=== PATIENT | female | born 1960 | race Caucasian/White ===

== ENCOUNTER 2021-02-16 21:59 | Emergency (ER) | payer MEDICAID, SELFPAY ==
[2021-02-16 22:00] VITALS: BP 144/81; PULSE 74; RESP 16; TEMP 36.7; O2SAT 97; BMI 40.6
--- NOTE | 2021-02-16 22:30 | XR_ITS ---
PROCEDURE INFORMATION: Exam: XR Left Femur Exam date and time: 02/16/2021 10:30 PM Age: 60 years old Clinical indication: Pain; Thigh; Left; Additional info: Injury twisted knee 02/14/2021 now pain left upper leg, knee and lower leg TECHNIQUE: Imaging protocol: XR Left femur. Views: 2 views. COMPARISON: No relevant prior studies available. FINDINGS: Bones/joints: No acute fracture. No dislocation. Soft tissues: Unremarkable. IMPRESSION: No fracture.
--- NOTE | 2021-02-16 22:30 | XR_ITS ---
PROCEDURE INFORMATION: Exam: XR Left Knee Exam date and time: 02/16/2021 10:30 PM Age: 60 years old Clinical indication: Pain; Knee; Left; Additional info: Injury twisted knee 02/14/2021 TECHNIQUE: Imaging protocol: XR Left knee. Views: 3 views. COMPARISON: No relevant prior studies available. FINDINGS: Limitations: Suboptimal positioning. Bones/joints: No acute fracture. Mild to moderate osteoarthrosis of medial compartment. No dislocation. No definite joint effusion. Soft tissues: Unremarkable. IMPRESSION: No fracture. If pain persists, suggest MRI to evaluate for occult fracture/internal arrangement.
--- NOTE | 2021-02-16 22:30 | XR_ITS ---
PROCEDURE INFORMATION: Exam: XR Left Tibia and Fibula Exam date and time: 02/16/2021 10:30 PM Age: 60 years old Clinical indication: Pain; Lower leg; Left; Additional info: Injury twisted knee 02/14/2021 pain TECHNIQUE: Imaging protocol: XR Left tibia and fibula. Views: 2 views. COMPARISON: CR XR KNEE LT 3V 02/16/2021 10:37 PM FINDINGS: Bones/joints: No acute fracture. No dislocation. Plantar calcaneal enthesophyte. Soft tissues: Soft tissue swelling. IMPRESSION: No fracture.
--- NOTE | 2021-02-16 22:30 | XR_ITS ---
PROCEDURE INFORMATION: Exam: XR Left Hip Exam date and time: 02/16/2021 10:30 PM Age: 60 years old Clinical indication: Hip pain; Left hip; Additional info: Injury twisted left knee 02/14/2021 now pain left hip, upper leg, knee and lower leg TECHNIQUE: Imaging protocol: XR Left hip. Views: 2 or 3 views hip with pelvis when performed. COMPARISON: No relevant prior studies available. FINDINGS: Bones/joints: No acute fracture. No dislocation. Soft tissues: Unremarkable. IMPRESSION: No fracture. If hip pain persists, consider MRI to exclude occult fracture/internal derangement.
--- NOTE | 2021-02-16 23:15 | HMH.EDGENADL ---
ED Disposition Clinical Impression: Lumbar radiculopathy, acute Disposition: Home, Self-Care Condition on Discharge: Good Instructions: DI for Lumbar Radiculopathy Additional Instructions: see pcp and use meds Prescriptions: predniSONE [Prednisone 20mg Tab] 20 mg PO BID #10 tab Transmission Status: Pending to [facility] #[id number] Referrals: Provider,Referral, [Primary Care Provider] - - Critical Care Critical Care Time: No Attestation: On 02/16/21, the high probability of a clinically significant, sudden or life threatening deterioration of the following system(s) required my full and direct attention, intervention and personal management. The time I documented below is in addition to time spent performing reported procedures but includes the following listed in this critical care notation. Medical Decision Making - Medical Records Medical records reviewed: Yes: I reviewed the patient's medical records. - Jimmie Inquiry Pt receiving controlled substance: No Vital Signs: 02/16/21 22:00 Temperature 98.0 F Temperature Source Oral Pulse Rate [Right] 74 Respiratory Rate 16 Blood Pressure [Right Arm] 144/81 H Blood Pressure Mean [Right Arm] 102 02 Sat by Pulse Oximetry 97 Oxygen Delivery Method Room Air - Lab Data Lab results reviewed: Yes: I reviewed the patient's lab results. Orders (Tests/Meds): ED MEDICATIONS Discontinued Medications Generic Name Dose Route Start Last Admin Trade Name Luz PRN Reason Stop Dose Admin Hydrocodone Bitart/Acetaminophen 1 tab 02/16/21 23:48 02/16/21 23:51 Hydrocodone/Apap 5/325 Mg Tablet PO 02/16/21 23:49 1 tab ONCE ONE Administration ORDERS Category Date Time Status XR femur LT 2V Stat Exams 02/16/21 22:30 Taken XR hip LT 2-3V w/pelvis Stat Exams 02/16/21 22:30 Taken XR knee LT 3V Stat Exams 02/16/21 22:30 Taken XR tibia fibula LT 2V Stat Exams 02/16/21 22:30 Taken - Radiology Data #1 Image(s): Hip, Femur, Knee, Tib/Fib Image Reviewed: Yes I reviewed the patient's radiology image Preliminary Findings: No Fracture Seen Medical Decision Narrative: has reffered pain with prob lumbar radicular pain - will ask pt to see pcp for follow up General Adult HPI - General Chief complaint: PAIN Stated complaint: L leg pain twisted knee 02/14 Time Seen by Provider: 02/16/21 22:20 Mode of Arrival: Ambulatory Source of Information: Patient, Medical Record Limitations: No Limitations Description of Symptoms (Recalled from ER Triage Doc. by RN): c\o left leg pain from hip to ankle since this am. twisted the knee on wednesday night - History of Present Illness HPI narrative: atraumatic pain lt lower leg over the last 2 days w/o fever/rash or trauma Onset (ago): day(s) Location: back, lower extremity Radiation: extremity Severity: moderate Associated symptoms: denies other symptoms Treatments prior to arrival: none - Related Data Previous Rx's Medication Instructions Recorded predniSONE [Prednisone 20mg 20 mg PO BID #10 tab 02/17/21 Tab] Allergies Allergy/AdvReac Type Severity Reaction Status Date / Time ketorolac [From Toradol] Allergy Mild Verified 02/16/21 22:19 metoclopramide [From Reglan] Allergy Verified 02/16/21 22:19 Penicillins Allergy Verified 02/16/21 22:19 prochlorperazine Allergy Verified 02/16/21 22:19 [From Compazine] [facility] History - Hepatitis A Screen Drug use history?: No High risk sexual behaviors?: No History of sexually transmitted infection?: No Currently employed?: No Childcare worker?: No Do you have indoor plumbing?: Yes Do you have electricity?: Yes Attestation statement:: This patient has been screened for Hepatitis A risk factors. I have reviewed the patient's past medical history: Yes ROS Obtained: Yes All systems reviewed & no additional complaints - Constitutional Constitutional: Denies fever(s) - Eyes Eyes: Denies change in vi
[2021-02-17 00:31] VITALS: BP 168/89; PULSE 85; RESP 16; TEMP 36.9; O2SAT 97
== END 2021-02-17 00:47 | disposition home or self-care (01) ==
PROVIDERS: Emergency Provider Emergency Medicine
DX: M54.16 Radiculopathy, lumbar region (principal); M79.605 Pain in left leg
CPT/HCPCS: 73502; 73552; 73562; 73590; 99282

== ENCOUNTER 2021-07-04 21:28 | Emergency (ER) | payer MEDICAID, SELFPAY ==
[2021-07-04 21:30] VITALS: BP 169/97; PULSE 116; RESP 18; TEMP 36.7; O2SAT 97; BMI 41.5
[2021-07-04 22:00] VITALS: BP 159/99; PULSE 89; O2SAT 97
--- NOTE | 2021-07-04 22:02 | CT_ITS ---
PROCEDURE INFORMATION: Exam: CTA Chest With Contrast Exam date and time: 07/04/2021 10:02 PM Age: 61 years old Clinical indication: Other: Weakness covid chest pain; Additional info: Covid + pe rule out TECHNIQUE: Imaging protocol: Computed tomographic angiography of the chest with contrast. 3D rendering (Not supervised by radiologist): MIP and/or 3D reconstructed images were created by the technologist. Radiation optimization: All CT scans at this facility use at least one of these dose optimization techniques: automated exposure control; mA and/or kV adjustment per patient size (includes targeted exams where dose is matched to clinical indication); or iterative reconstruction. Contrast material: ISOVUE 370; Contrast volume: 70 ml; Contrast route: INTRAVENOUS (IV); COMPARISON: CR XR CHEST 2V 07/04/2021 10:29 PM FINDINGS: Pulmonary arteries: No pulmonary emboli. Aorta: Mild atherosclerotic changes of the aorta. Lungs: Widespread ground-glass airspace disease. Pleural spaces: Unremarkable. No pneumothorax. No pleural effusion. Heart: Unremarkable. No cardiomegaly. No pericardial effusion. Lymph nodes: Unremarkable. No enlarged lymph nodes. Diaphragm: Small hiatal hernia. Liver: Hepatic steatosis. Gallbladder and bile ducts: Gallbladder is absent. Kidneys and ureters: Low attenuation renal lesions measuring up to 1.6 cm in diameter are incompletely characterized, but are likely cysts. No followup imaging is warranted. Bones/joints: Unremarkable. No acute fracture. Soft tissues: Unremarkable. Other findings: Stigmata of old granulomatous disease. IMPRESSION: 1. No pulmonary emboli. 2. Widespread ground-glass airspace disease. This most likely represents atypical pneumonia. This is a common appearance for COVID-19. 3. Hepatic steatosis. COMMENTS: Consistent with the [employer]'s Incidental Findings Committee white paper (J Am Rj Radiol 2018): Any incidental renal lesion less than 1 cm or classified as too small to characterize, or any incidental cystic renal lesion characterized as simple-appearing, is likely benign. No follow-up imaging is recommended for these lesions per consensus recommendations based on imaging criteria.
--- NOTE | 2021-07-04 22:02 | XR_ITS ---
PROCEDURE INFORMATION: Exam: XR Chest Exam date and time: 07/04/2021 10:02 PM Age: 61 years old Clinical indication: Other: Covid weakness chest pain; Additional info: Weakness covid+ TECHNIQUE: Imaging protocol: XR of the chest. Views: 2 views. COMPARISON: No relevant prior studies available. FINDINGS: Lungs: Mild patchy ground-glass opacities in the lungs. Pleural spaces: Unremarkable. No pleural effusion. No pneumothorax. Heart/Mediastinum: Unremarkable. No cardiomegaly. Bones/joints: Unremarkable. IMPRESSION: Mild patchy ground-glass opacities in the lungs. This could correlate with atypical pneumonia, such as COVID-19, in the appropriate clinical setting.
--- NOTE | 2021-07-04 22:11 | ECG_ITS ---
APPROVED REPORT Exam: Resting ECG HR:97 bpm ECG Measurements Heart Rate 97 AXES DE 155 P 62 QRSd 79 QRS 42 QT 362 T 75 QTc 416 Conclusion SINUS RHYTHM NORMAL ECG UNCONFIRMED REPORT Electronically signed by : Michel Colón MD 07/05/2021 07:35:31
[2021-07-04 22:22] LABS: Basophils # 0.4 K/mm3 (0-0.2); Basophils % 4.9 % (0.1-2.0); Eosinophils # 0.2 K/mm3 (0.0-0.4); Eosinophils % 2.3 % (0.1-12.0); Hematocrit 46.7 % (37.0-47.0); Hemoglobin 15.4 g/dL (12.2-16.2); Lymphocytes # 2.4 K/mm3 (0.7-4.5); Lymphocytes % 29.8 % (10-50); Mean Corpuscular Volume 103.1 fl (81-99); Mean Platelet Volume 9.3 fl (7.4-10.4); Monocytes # 0.6 K/mm3 (0.1-1.0); Monocytes % 6.9 % (1.7-9.3); Neutrophils # 4.9 K/mm3 (1.8-7.8); Platelet Count 363 K/mm3 (142-424); Red Blood Count 4.53 M/mm3 (4.20-5.40); Red Cell Distribution Width 15.3 % (11.5-17.5); White Blood Count 8.1 K/mm3 (4.8-10.8)
[2021-07-04 22:24] LABS: Alanine Aminotransferase 41 U/L (12-78); Albumin Level 4.1 g/dl (3.5-5.0); Alkaline Phosphatase 100 U/L (38-126); Anion Gap 8.2 mEq/L (5-15); Aspartate Amino Transferase 60 U/L (14-36); Bilirubin,Direct 0.2 mg/dl (0.0-0.4); Bilirubin,Indirect 0.5 mg/dL (0.0-0.9); Bilirubin,Total 0.7 mg/dl (0.2-1.3); Bilirubin,Unconjugated 0.5 mg/dL (0.0-1.1); Blood Urea Nitrogen 17 mg/dl (7-17); Calcium 9.4 mg/dl (8.4-10.2); Carbon Dioxide 30 mmol/L (22.0-30.0); Chloride 104 mmol/L (98-107); Creatinine Clearance Estimated 41 mL/min (50-200); Estimated Glomerular Filt Rate 50 ml/min (>60); GFR (African American) 61 ML/MIN (>60); Glucose 118 mg/dl (74-100); Potassium 3.2 mmoL/L (3.5-5.1); Sodium 139 mmol/L (136-145); Total Protein,Serum 7.5 g/dl (6.3-8.2)
[2021-07-04 22:28] LABS: Magnesium 1.6 mg/dl (1.6-2.3)
[2021-07-04 22:29] LABS: C-Reactive Protein 6.1 mg/L (0-4)
--- NOTE | 2021-07-04 22:37 | PC.NURSE ---
patient assisted to bathroom, patient to radiology
[2021-07-04 22:40] LABS: Troponin I < 0.01 ng/ml (0.00-0.034)
--- NOTE | 2021-07-04 22:41 | HMH.EDWEAK ---
ED Disposition Clinical Impression: Lumbar back pain, COVID-19 virus infection UTI (urinary tract infection) Qualifiers: Urinary tract infection type: site unspecified Hematuria presence: without hematuria Qualified Code(s): N39.0 - Urinary tract infection, site not specified Disposition: Home, Self-Care Condition on Discharge: Good Instructions: DI for COVID-19 (Suspected or Confirmed ) Additional Instructions: fluids and see pcp for follow up Prescriptions: levoFLOXacin [Levaquin 500mg tab] 500 mg PO DAILY #7 tab [facility]: [facility] predniSONE [Prednisone 20mg Tab] 20 mg PO BID #10 tab [facility] Status[facility] Referrals: Provider,Referral, MD [Primary Care Provider] - - Critical Care Critical Care Time: No Attestation: On 07/04/21, the high probability of a clinically significant, sudden or life threatening deterioration of the following system(s) required my full and direct attention, intervention and personal management. The time I documented below is in addition to time spent performing reported procedures but includes the following listed in this critical care notation. Medical Decision Making - Medical Records Medical records reviewed: Yes: I reviewed the patient's medical records. - Jimmie Inquiry Pt receiving controlled substance: No Vital Signs: 07/04/21 21:30 Temperature 98.0 F Temperature Source Oral Pulse Rate [Right Radial] 116 H Respiratory Rate 18 Blood Pressure [Right Arm] 169/97 H Blood Pressure Mean [Right Arm] 121 Blood Pressure Source [Right Arm] Automatic Cuff Blood Pressure Position [Right Arm] Sitting 02 Sat by Pulse Oximetry 97 Oxygen Delivery Method Room Air - Lab Data Lab results reviewed: Yes: I reviewed the patient's lab results. Lab Results 07/04/21 22:06: WBC 8.1, RBC 4.53, Hgb 15.4, Hct 46.7, MCV 103.1 H, MCH 34.0 H, MCHC 33.0, RDW 15.3, Plt Count 363, MPV 9.3, Neut % (Auto) 61.0, Lymph % (Auto) 29.8, [place] % (Auto) 6.9, Eos % (Auto) 2.3, Baso % (Auto) 4.9 H, Neut # (Auto) 4.9, Lymph # (Auto) 2.4, [place] # (Auto) 0.6, Eos # (Auto) 0.2, Baso # (Auto) 0.4 H 07/04/21 22:06: Sodium 139, Potassium 3.2 L, Chloride 104, Carbon Dioxide 30, Anion Gap 8.2, BUN 17, Creatinine 1.10 H, Estimated Creat Clear 41, Estimated GFR 50 L, Est GFR ( Amer) 61, Glucose 118 H, Calcium 9.4, Total Bilirubin 0.7, Direct Bilirubin 0.2, Conjugated Bilirubin 0.0, Indirect Bilirubin 0.5, Unconjugated Bilirubin 0.5, AST 60 H, ALT 41, Alkaline Phosphatase 100, Troponin I < 0.01, C-Reactive Protein 6.1 H, Total Protein 7.5, Albumin 4.1 07/04/21 22:06: ESR 46 H 07/04/21 22:06: Procalcitonin 0.060 07/04/21 22:06: Magnesium 1.6 07/04/21 22:30: Urine Color Dk yellow, Urine Appearance Sl cloudy, Urine pH 6.0, Ur Specific [place] >= 1.030, Urine Protein Trace, Urine Glucose (UA) Negative, Urine Ketones Trace, Urine Blood 1+, Urine Nitrate Negative, Urine Bilirubin Negative, Urine Urobilinogen 0.2, Ur Leukocyte Esterase Trace, Urine RBC 10-20, Urine WBC 10-20, Ur Squamous Epith Cells 5-10, Urine Mucus 4+ Result diagrams: 07/04/21 22:06 07/04/21 22:06 Orders (Tests/Meds): ED MEDICATIONS Generic Name Dose Route Start Last Admin Trade Name Freq PRN Reason Stop Dose Admin Lactated Ringer's 1,000 mls @ 999 mls/hr 07/04/21 22:45 Lactated Ringer's 1000 Ml Bag IV 07/04/21 23:45 .Q1H1M SARAH Ceftriaxone Sodium 1 gm/ 50 mls @ 100 mls/hr 07/04/21 23:30 Sodium Chloride IV 07/18/21 23:29 Q24H SARAH Discontinued Medications Generic Name Dose Route Start Last Admin Trade Name Freq PRN Reason Stop Dose Admin Acetaminophen 1,000 mg 07/04/21 22:34 07/04/21 22:36 Acetaminophen 500mg Tab PO 07/04/21 22:35 1,000 mg ONCE ONE Administration Iopamidol 70 ml 07/04/21 22:52 07/04/21 22:53 Iopamidol-370 (76%);100ml Bottle IV 07/04/21 22:53 70 ml ONCE ONE Administration Methylprednisolone Sodium Succi
[2021-07-04 22:47] LABS: Erythrocyte Sedimentation Rate 46 mm/hr (0-30)
[2021-07-04 23:04] LABS: Microscopic, Urine URINE MICROSCOPIC (MICROSCOPIC)
[2021-07-04 23:06] LABS: Appearance,Urine SL CLOUDY (Clear); Blood, Urine 1+ (Negative); Color,Urine DK YELLOW (Yellow); Glucose,Urine (UA) Negative (Negative); Ketones,Urine TRACE (Negative); Leukocyte Esterase,Urine TRACE (Negative); Nitrate,Urine Negative (Negative); Protein,Urine TRACE (Negative); Specific Gravity, Urine >= 1.030 (1.005-1.030); Urobilinogen,Urine 0.2 EU/dl (0.2)
--- NOTE | 2021-07-04 23:11 | PC.NURSE ---
PT ASSISTED WITH REPOSITIONING FOR COMFORT. HEAD OF BED ADJUSTED AND AND PILLOWS PLACED BELOW KNEES AND LIGHTS DIMMED. PT AWARE OF NO NARCOTICS UNTIL THE SOURCE OF HER WEAKNESS IS IDENTIFIED FOR SAFETY AND PT AWARE OF NPO UNTIL CLEARED BY MD. WILL CONTINUE TO MONITOR.
[2021-07-04 23:12] LABS: Bilirubin,Urine Negative (Negative); Mucus,Urine 4+ /lpf
[2021-07-04 23:30] VITALS: BP 161/95; PULSE 86; O2SAT 96
[2021-07-05 01:17] VITALS: BP 160/90; PULSE 85; RESP 16; TEMP 36.7; O2SAT 97
== END 2021-07-05 01:17 | disposition home or self-care (01) ==
PROVIDERS: Emergency Provider Emergency Medicine
DX: M54.50 Low back pain, unspecified (principal); U07.1 COVID-19
CPT/HCPCS: 71046; 71275; 80048; 80076; 81001; 83735; 84145; 84484; 85025; 85651; 86140; 87086; 93005; 96365; 96375; 99283; J0696; Q9967

== ENCOUNTER 2021-10-08 01:34 | Emergency (ER) | payer MEDICAID, SELFPAY ==
[2021-10-08 01:46] VITALS: BP 180/120; PULSE 109; RESP 18; TEMP 36.7; O2SAT 97; BMI 39.6
--- NOTE | 2021-10-08 01:51 | CT_ITS ---
PROCEDURE INFORMATION: Exam: CT Abdomen And Pelvis With Contrast Exam date and time: 10/08/2021 2:39 AM Age: 61 years old Clinical indication: Abdominal pain; Localized; Patient HX: Pain left flank to lower abdomen TECHNIQUE: Imaging protocol: Computed tomography of the abdomen and pelvis with contrast. Radiation optimization: All CT scans at this facility use at least one of these dose optimization techniques: automated exposure control; mA and/or kV adjustment per patient size (includes targeted exams where dose is matched to clinical indication); or iterative reconstruction. Contrast material: ISOVUE; Contrast volume: 75 ml; Contrast route: IV; COMPARISON: CR XR HIP LT 2-3V W/PELVIS 02/16/2021 10:34 PM FINDINGS: Lungs: Clear basilar lung parenchyma. Pleural spaces: No pleural fluid. Heart: Normal heart size. Diaphragm: Moderate hiatal hernia noted. Liver: Homogeneous low attenuation throughout the liver is compatible with fatty infiltration. Gallbladder and bile ducts: Exam demonstrates features of prior cholecystectomy. No biliary tree dilation or high-density retained stones appreciated. Pancreas: There is diffuse fatty atrophy of the pancreas. No focal inflammation. Spleen: Normal. No splenomegaly. Adrenal glands: Normal. No mass. Kidneys and ureters: There is a slightly delayed left nephrogram. Left hydronephrosis and hydroureter are demonstrated. There is a 3 mm calculus in the intramural portion of the left ureterovesical junction. No residual intrarenal stones on the right. Single punctate intrarenal stone noted on the left. Stomach and bowel: Postprandial stomach. Normal caliber small bowel. Normal colon. Appendix: Normal appendix is confirmed. Intraperitoneal space: Unremarkable. No free air. No significant fluid collection. Vasculature: Unremarkable. No abdominal aortic aneurysm. Lymph nodes: Unremarkable. No enlarged lymph nodes. Urinary bladder: Mild thickening of the bladder wall at this site is noted. Reproductive: Unremarkable as visualized. Bones/joints: Unremarkable. No acute fracture. Soft tissues: Unremarkable. IMPRESSION: 1. Exam confirms left renal obstruction by a 3 mm calculus at the ureterovesical junction. 2. Moderate hiatal hernia. 3. Fatty liver.
[2021-10-08 02:03] LABS: Microscopic, Urine URINE MICROSCOPIC (MICROSCOPIC)
[2021-10-08 02:09] LABS: Basophils # 0.2 K/mm3 (0-0.2); Basophils % 2.7 % (0.1-2.0); Eosinophils # 0.2 K/mm3 (0.0-0.4); Eosinophils % 3.1 % (0.1-12.0); Hematocrit 46.1 % (37.0-47.0); Hemoglobin 15.4 g/dL (12.2-16.2); Lymphocytes # 2.2 K/mm3 (0.7-4.5); Lymphocytes % 32.5 % (10-50); Mean Corpuscular HGB Conc 33.3 g/dL (31.8-35.4); Mean Platelet Volume 8.9 fl (7.4-10.4); Monocytes # 0.5 K/mm3 (0.1-1.0); Monocytes % 7.2 % (1.7-9.3); Neutrophils # 3.7 K/mm3 (1.8-7.8); Neutrophils % 54.5 % (37.0-80.0); Platelet Count 194 K/mm3 (142-424); Red Blood Count 4.39 M/mm3 (4.20-5.40); Red Cell Distribution Width 13.7 % (11.5-17.5); White Blood Count 6.9 K/mm3 (4.8-10.8)
[2021-10-08 02:11] LABS: Appearance,Urine CLEAR (Clear); Bilirubin,Urine Negative (Negative); Blood, Urine 3+ (Negative); Color,Urine YELLOW (Yellow); Glucose,Urine (UA) Negative (Negative); Ketones,Urine Negative (Negative); Leukocyte Esterase,Urine Negative (Negative); Nitrate,Urine Negative (Negative); PH,Urine 6.5 (5.0-8.5); Protein,Urine Negative (Negative); Urobilinogen,Urine 0.2 EU/dl (0.2)
[2021-10-08 02:17] LABS: Alanine Aminotransferase 28 U/L (12-78); Albumin Level 4.1 g/dl (3.5-5.0); Albumin/Globulin Ratio 1.3 (1.1-1.8); Alkaline Phosphatase 86 U/L (38-126); Amylase 46 U/L (30-110); Anion Gap 10.9 mEq/L (5-15); Aspartate Amino Transferase 44 U/L (14-36); Bilirubin,Total 0.3 mg/dl (0.2-1.3); Blood Urea Nitrogen 19 mg/dl (7-17); Calcium 10.6 mg/dl (8.4-10.2); Carbon Dioxide 29 mmol/L (22.0-30.0); Chloride 102 mmol/L (98-107); Creatinine Clearance Estimated 89 mL/min (50-200); Estimated Glomerular Filt Rate 64 ml/min (>60); GFR (African American) 77 ML/MIN (>60); Globulin 3.1 g/dL (1.3-3.2); Glucose 120 mg/dl (74-100); Sodium 139 mmol/L (136-145); Total Protein,Serum 7.2 g/dl (6.3-8.2)
[2021-10-08 02:26] LABS: C-Reactive Protein 9.8 mg/L (0-4); Potassium 2.9 mmoL/L (3.5-5.1); WBC,Urine Occasional #/hpf (0-3)
--- NOTE | 2021-10-08 02:26 | PC.NURSE ---
Critical potassium of 2.9 called from Megan in Lab. Notified.
[2021-10-08 02:27] LABS: Bacteria,Urine Trace /lpf
[2021-10-08 02:38] LABS: Procalcitonin 0.078 ng/mL (0.0-2.0)
[2021-10-08 02:47] LABS: Lipase 39 U/L (23-300)
--- NOTE | 2021-10-08 02:57 | HMH.EDNVD ---
ED Disposition Clinical Impression: Renal colic on left side Disposition: Home, Self-Care Condition on Discharge: Good Instructions: DI for Kidney Stones Additional Instructions: use meds and see pcp and urology for follow up Prescriptions: Tamsulosin HCl [Flomax 0.4mg capsule] 0.4 mg PO HS #10 cap Transmission Status: Pending to [facility] levoFLOXacin [Levaquin 500mg tab] 500 mg PO DAILY #7 tab Transmission Status: Pending to [facility] Referrals: Carlyn Ervin APRN [Primary Care Provider] - Keven Grimes MD [Staff Physician] - - Critical Care Critical Care Time: No Attestation: On 10/08/21, the high probability of a clinically significant, sudden or life threatening deterioration of the following system(s) required my full and direct attention, intervention and personal management. The time I documented below is in addition to time spent performing reported procedures but includes the following listed in this critical care notation. Medical Decision Making - Medical Records Medical records reviewed: Yes: I reviewed the patient's medical records. - Jimmie Inquiry Pt receiving controlled substance: No Vital Signs: 10/08/21 01:46 Temperature 98.0 F Temperature Source Oral Pulse Rate [Apical] 109 H Respiratory Rate 18 Blood Pressure [Right Arm] 180/120 H Blood Pressure Mean [Right Arm] 140 Blood Pressure Source [Right Arm] Manual Cuff/ Auscultation Blood Pressure Position [Right Arm] Sitting 02 Sat by Pulse Oximetry 97 Oxygen Delivery Method Room Air - Lab Data Lab results reviewed: Yes: I reviewed the patient's lab results. Lab Results 10/08/21 02:00: Urine Color Yellow, Urine Appearance Clear, Urine pH 6.5, Ur Specific [place] 1.020, Urine Protein Negative, Urine Glucose (UA) Negative, Urine Ketones Negative, Urine Blood 3+, Urine Nitrate Negative, Urine Bilirubin Negative, Urine Urobilinogen 0.2, Ur Leukocyte Esterase Negative, Urine RBC 5-10, Urine WBC Occasional, Urine Bacteria Trace 10/08/21 02:00: WBC 6.9, RBC 4.39, Hgb 15.4, Hct 46.1, MCV 105.0 H, MCH 35.0 H, MCHC 33.3, RDW 13.7, Plt Count 194, MPV 8.9, Neut % (Auto) 54.5, Lymph % (Auto) 32.5, [place] % (Auto) 7.2, Eos % (Auto) 3.1, Baso % (Auto) 2.7 H, Neut # (Auto) 3.7, Lymph # (Auto) 2.2, [place] # (Auto) 0.5, Eos # (Auto) 0.2, Baso # (Auto) 0.2, ESR 22 10/08/21 02:00: Sodium 139, Potassium 2.9 L*, Chloride 102, Carbon Dioxide 29, Anion Gap 10.9, BUN 19 H, Creatinine 0.90, Estimated Creat Clear 89, Estimated GFR 64, Est GFR ( Amer) 77, Glucose 120 H, Calcium 10.6 H, Total Bilirubin 0.3, AST 44 H, ALT 28, Alkaline Phosphatase 86, C-Reactive Protein 9.8 H, Total Protein 7.2, Albumin 4.1, Globulin 3.1, Albumin/Globulin Ratio 1.3, Amylase 46, Procalcitonin 0.078 10/08/21 02:00: Lipase 39 Result diagrams: 10/08/21 02:00 10/08/21 02:00 Orders (Tests/Meds): ED MEDICATIONS Generic Name Dose Route Start Last Admin Trade Name Freq PRN Reason Stop Dose Admin Acetaminophen/Codeine Phosphate packet 10/08/21 03:55 Acetaminophen 300mg W/Codeine 30mg Take Home Pack (6) PO 10/08/21 03:56 ONCE ONE Sodium Chloride 1,000 mls @ 999 mls/hr 10/08/21 02:00 10/08/21 02:00 Sod Chlor 0.9% 1000ml Bag IV 10/08/21 03:00 999 mls/hr .Q1H1M SARAH Administration Discontinued Medications Generic Name Dose Route Start Last Admin Trade Name Freq PRN Reason Stop Dose Admin Acetaminophen/Codeine Phosphate packet 10/08/21 03:40 Acetaminophen 300mg W/Codeine 30mg Take Home Pack (6) PO 10/08/21 03:41 ONCE ONE Acetaminophen/Codeine Phosphate packet 10/08/21 03:48 Acetaminophen 300mg W/Codeine 30mg Take Home Pack (6) PO 10/08/21 03:49 ONCE ONE Hydromorphone HCl 1 mg 10/08/21 03:41 10/08/21 03:54 Hydromorphone 2mg/Ml Syringe IV 10/08/21 03:42 1 mg ONCE ONE Administration Iopamidol 75 ml 10/08/21 02:48 10/08/21 02:49 Iopamidol-370 (76%);100ml Bottle IV
[2021-10-08 03:03] LABS: Erythrocyte Sedimentation Rate 22 mm/hr (0-30)
[2021-10-08 04:12] VITALS: BP 143/86; PULSE 75; RESP 17; TEMP 36.7; O2SAT 99
== END 2021-10-08 04:16 | disposition home or self-care (01) ==
PROVIDERS: Emergency Provider Emergency Medicine; PCP Nurse Practitioner Family
DX: N13.2 Hydronephrosis with renal and ureteral calculous obstruction (principal); N23 Unspecified renal colic; R10.32 Left lower quadrant pain; Z88.0 Allergy status to penicillin
CPT/HCPCS: 74177; 80053; 81001; 82150; 83690; 84145; 85025; 85651; 86140; 96365; 96375; 99284; J2405; Q9967

== ENCOUNTER → 2022-05-29 14:45 | Outpatient (CLI) | payer MEDICAID, SELFPAY ==
[2022-05-29 19:35] LABS: Amphetamine/Metha Screen,Urine Negative ng/ml (<1000); Barbiturates Screen,Urine Negative ng/ml (<200)
[2022-05-29 19:36] LABS: Benzodiazepines Screen,Urine Negative ng/ml (<200)
[2022-05-29 19:37] LABS: Cannabinoid Screen,Urine Negative ng/ml (<50); Cocaine Screen,Urine Negative ng/ml (<300)
[2022-05-29 19:38] LABS: Methadone Screen,Urine Negative ng/ml (<300); Opiate Screen,Urine Negative ng/ml (<300)
[2022-05-29 19:39] LABS: Phencyclidine Screen,Urine Negative ng/ml (<25)
== END ==
PROVIDERS: PCP Emergency Medicine; Visit Provider Emergency Medicine
DX: Z79.899 Other long term (current) drug therapy (principal)
CPT/HCPCS: 80305

== ENCOUNTER → 2022-10-09 16:09 | Outpatient (CLI) | payer OTHER, MEDICAID, SELFPAY ==
[2022-10-09 18:09] LABS: Basophils # 0.1 K/mm3 (0-0.2); Basophils % 0.6 % (0.1-2.0); Eosinophils # 0.3 K/mm3 (0.0-0.4); Hematocrit 44.5 % (37.0-47.0); Hemoglobin 14.7 g/dL (12.2-16.2); Lymphocytes % 32.7 % (10-50); Mean Corpuscular HGB Conc 33.1 g/dL (31.8-35.4); Mean Corpuscular Volume 99.7 fl (81-99); Mean Platelet Volume 12.9 fl (7.4-10.4); Monocytes # 0.8 K/mm3 (0.1-1.0); Monocytes % 8.4 % (1.7-9.3); Neutrophils % 55.2 % (37.0-80.0); Platelet Count 219 K/mm3 (142-424); Red Blood Count 4.46 M/mm3 (4.20-5.40); Red Cell Distribution Width 13.5 % (11.5-17.5); White Blood Count 9.1 K/mm3 (4.8-10.8)
[2022-10-09 18:20] LABS: Alanine Aminotransferase 17 U/L (12-78); Albumin/Globulin Ratio 1.3 (1.1-1.8); Alkaline Phosphatase 83 U/L (38-126); Anion Gap 18.7 mEq/L (5-15); Aspartate Amino Transferase 25 U/L (14-36); Bilirubin,Total 0.6 mg/dl (0.2-1.3); Blood Urea Nitrogen 18 mg/dl (7-17); Calcium 9.5 mg/dl (8.4-10.2); Carbon Dioxide 25 mmol/L (22.0-30.0); Chloride 98 mmol/L (98-107); Chol/HDL Ratio 2.9 (1-3.5); Cholesterol 205 mg/dl (140-200); Estimated Glomerular Filt Rate 63 ml/min (>60); GFR (African American) 77 ML/MIN (>60); Glucose 85 mg/dl (74-100); HDL Cholesterol 70 mg/dl (40-60); Potassium 3.7 mmoL/L (3.5-5.1); Sodium 138 mmol/L (136-145); Triglycerides 242 mg/dl (30-150); VLDL Cholesterol 48 mg/dL (0-40)
[2022-10-09 18:32] LABS: Direct LDL Cholesterol 112.27 mg/dL (100-129)
[2022-10-09 18:38] LABS: Free T4 (Free Thyroxine) 1.17 ng/dl (0.78-2.19)
[2022-10-09 18:39] LABS: 25-OH Vitamin D, Total 23.8 ng/mL (30-100)
[2022-10-09 18:52] LABS: Thyroid Stimulating Hormone 0.46 uIU/mL (0.465-4.68)
[2022-10-09 19:11] LABS: Vitamin B12 399 pg/mL (239-931)
== END ==
PROVIDERS: PCP Emergency Medicine; Visit Provider Emergency Medicine
DX: E55.9 Vitamin D deficiency, unspecified (principal); E66.01 Morbid (severe) obesity due to excess calories; Z68.41 Body mass index [BMI] 40.0-44.9, adult; Z79.899 Other long term (current) drug therapy
CPT/HCPCS: 80053; 80061; 82306; 82607; 84439; 84443; 85025

== ENCOUNTER → 2022-12-07 13:54 | Outpatient (CLI) | payer OTHER, MEDICAID, SELFPAY ==
[2022-12-07 19:17] LABS: Amphetamine/Metha Screen,Urine Negative ng/ml (<1000)
[2022-12-07 19:18] LABS: Barbiturates Screen,Urine Negative ng/ml (<200)
[2022-12-07 19:19] LABS: Benzodiazepines Screen,Urine Negative ng/ml (<200)
[2022-12-07 19:20] LABS: Cannabinoid Screen,Urine Negative ng/ml (<50)
[2022-12-07 19:21] LABS: Cocaine Screen,Urine Negative ng/ml (<300)
[2022-12-07 19:28] LABS: Opiate Screen,Urine Negative ng/ml (<300); Phencyclidine Screen,Urine Negative ng/ml (<25)
[2022-12-07 19:32] LABS: Methadone Screen,Urine Negative ng/ml (<300)
== END ==
PROVIDERS: PCP Emergency Medicine; Visit Provider Emergency Medicine
DX: Z79.899 Other long term (current) drug therapy (principal)
CPT/HCPCS: 80305

== ENCOUNTER → 2023-02-03 12:00 | Outpatient (CLI) | payer OTHER, MEDICAID, SELFPAY ==
[2023-02-03 20:25] LABS: Opiate Screen,Urine Negative ng/ml (<300)
[2023-02-03 20:26] LABS: Methadone Screen,Urine Negative ng/ml (<300)
[2023-02-03 20:51] LABS: Amphetamine/Metha Screen,Urine Negative ng/ml (<1000); Barbiturates Screen,Urine Negative ng/ml (<200)
[2023-02-03 20:52] LABS: Benzodiazepines Screen,Urine Negative ng/ml (<200)
[2023-02-03 20:53] LABS: Cannabinoid Screen,Urine Negative ng/ml (<50); Cocaine Screen,Urine Negative ng/ml (<300)
[2023-02-03 20:54] LABS: Phencyclidine Screen,Urine Negative ng/ml (<25)
== END ==
PROVIDERS: PCP Emergency Medicine; Visit Provider Emergency Medicine
DX: F41.9 Anxiety disorder, unspecified (principal)
CPT/HCPCS: 80305

== ENCOUNTER → 2023-03-31 23:31 | Outpatient (CLI) | payer OTHER, MEDICAID, SELFPAY ==
[2023-03-31 21:27] LABS: Amphetamine/Metha Screen,Urine Negative ng/ml (<1000)
[2023-03-31 21:29] LABS: Barbiturates Screen,Urine Negative ng/ml (<200)
[2023-03-31 21:30] LABS: Cannabinoid Screen,Urine Negative ng/ml (<50)
[2023-03-31 21:31] LABS: Cocaine Screen,Urine Negative ng/ml (<300)
[2023-03-31 21:32] LABS: Opiate Screen,Urine Negative ng/ml (<300); Phencyclidine Screen,Urine Negative ng/ml (<25)
[2023-03-31 22:00] LABS: Benzodiazepines Screen,Urine Negative ng/ml (<200)
[2023-03-31 22:12] LABS: Methadone Screen,Urine Negative ng/ml (<300)
== END ==
PROVIDERS: PCP Emergency Medicine; Visit Provider Emergency Medicine
DX: Z79.899 Other long term (current) drug therapy (principal)
CPT/HCPCS: 80305

== ENCOUNTER 2023-06-02 18:19 | Outpatient (CLI) | payer OTHER, MEDICAID, SELFPAY ==
[2023-06-02 21:32] LABS: Amphetamine/Metha Screen,Urine Negative ng/ml (<1000); Barbiturates Screen,Urine Negative ng/ml (<200); Benzodiazepines Screen,Urine Negative ng/ml (<200); Cannabinoid Screen,Urine Negative ng/ml (<50); Cocaine Screen,Urine Negative ng/ml (<300); Methadone Screen,Urine Negative ng/ml (<300); Opiate Screen,Urine Negative ng/ml (<300); Phencyclidine Screen,Urine Negative ng/ml (<25)
[2023-06-08 15:11] LABS: Alprazolam Negative (Cutoff=100); Benzodiazepines Positive ng/mL (Cutoff=100); Clonazepam Positive (.); Clonazepam Confirm 147 ng/mL (Cutoff=100); Flurazepam Negative (Cutoff=100); Lorazepam Negative (Cutoff=100); Midazolam Negative (Cutoff=100); Opiates Negative (Cutoff=100); Temazepam Negative (Cutoff=100); Triazolam Negative (Cutoff=100)
== END 2023-06-02 23:59 ==
LOC: LAB.DROPOF 18:19
PROVIDERS: Visit Provider Family Medicine
DX: Z79.899 Other long term (current) drug therapy (principal)
CPT/HCPCS: 80307; 80346; 80361; 80365; G0480